=== PATIENT | male | born 1980 | race Caucasian/White ===

== ENCOUNTER 2016-10-30 00:16 | Emergency (ER) | payer BC ==
[~2016-10-30] VITALS: Ht 193 cm; Wt 108.9 kg
[2016-10-30 06:33] VITALS: BP 112/67
== END 2016-10-30 06:44 | disposition home or self-care (01) ==
LOC: EDBD 00:16 → M ED 01:53
DX: S01.511A Laceration without foreign body of lip, initial encounter (principal); W01.198A Fall on same level from slipping, tripping and stumbling with subsequent striking against other object, initial encounter; Y92.89 Other specified places as the place of occurrence of the external cause; Y93.01 Activity, walking, marching and hiking; Y99.9 Unspecified external cause status